=== PATIENT | female | born 1955 | race Hispanic/Latino ===

== ENCOUNTER 2016-08-30 14:52 | Emergency (ER) | payer OTHER ==
[2016-08-30 15:20] VITALS: BP 120/77
[2016-08-30] MEDS ORDERED: NORCO 5/325 PO ONE (19:36)
--- NOTE | 2016-08-30 19:39 | Emergency Department Report ---
ED Fall HPI - General Chief Complaint: Fall Stated Complaint: FALL Time Seen by Provider: 08/30/16 19:27 Source: patient Mode of arrival: Ambulatory - History of Present Illness Initial Comments: 61-year-old female past medical history Paget's disease, history of femur fracture, obesity, arthritis, diabetes presents with complaint of right foot pain and left knee pain status post mechanical fall at home. Patient states that she tripped over a tile on the floor and rolled her right foot. Fell forward. Denies any head trauma no neck trauma, no loss of consciousness. Patient denies any pain in her upper extremities and back or chest or abdomen. States that she primarily feels pain in her right foot and some in her left knee. Patient uses cane to ambulate. Patient is able to stand but has pain in her right foot when she stands. She denies being on any blood thinners. Patient is awake alert and oriented 3 does not appear to be in acute distress during my exam. Is fully lucid conversant and able to follow commands and answer my questions appropriately. MD Complaint: fall Onset/Timin -: days(s) Fall From: standing When Fall Occurred: recurrent falls Fall Witnessed: yes, by bystander Place Fall Occurred: home Loss of Consciousness: none Prolonged Down Time?: no Symptoms Prior to Fall: none Location - Extremities: Left: Knee, Right: Foot Severity: moderate Severity scale (0 -10): 6 Quality: sharp Context: tripped/slipped, history of frequent falls Associated Symptoms: denies - Related Data Previous Rx's Medication Instructions Recorded Last Taken Type HYDROcodone/APAP 5-325 [[place] 1 each PO Q6HR PRN #18 tablet 08/30/16 Unknown Rx 5/325] Allergies Allergy/AdvReac Type Severity Reaction Status Date / Time hydrocortisone AdvReac Rash Verified 08/30/16 15:22 [From Cortizone-10] Penicillins AdvReac Rash Verified 08/30/16 15:22 ED Review of Systems ROS: Stated complaint: FALL Other details as noted in HPI Constitutional: denies: chills, fever Eyes: denies: eye pain, eye discharge, vision change ENT: denies: ear pain, throat pain Respiratory: denies: cough, shortness of breath, wheezing Cardiovascular: denies: chest pain, palpitations Endocrine: no symptoms reported Gastrointestinal: denies: abdominal pain, nausea, diarrhea Genitourinary: denies: urgency, dysuria, discharge Musculoskeletal: denies: back pain, joint swelling, arthralgia Skin: denies: rash, lesions Neurological: denies: headache, weakness, paresthesias Psychiatric: denies: anxiety, depression Hematological/Lymphatic: denies: easy bleeding, easy bruising ED Past Medical Hx - Past Medical History Previous Medical History?: Yes Hx Diabetes: Yes Hx Arthritis: Yes Additional medical history: padgetts - Surgical History Additional Surgical History: fx femur - Social History Smoking Status: Never Smoker Substance Use Type: None - Medications Home Medications: Home Medications Medication Instructions Recorded Confirmed Last Taken Type HYDROcodone/APAP 5-325 [[place] 1 each PO Q6HR PRN #18 tablet 08/30/16 Unknown Rx 5/325] ED Physical Exam - General Limitations: No Limitations General appearance: alert, in no apparent distress - Head Head exam: Present: atraumatic, normocephalic - Eye Eye exam: Present: normal appearance, PERRL, EOMI - ENT ENT exam: Present: mucous membranes moist - Neck Neck exam: Present: normal inspection, full ROM - Respiratory Respiratory exam: Present: normal lung sounds bilaterally. Absent: respiratory distress - Cardiovascular Cardiovascular Exam: Present: regular rate, normal rhythm. Absent: systolic murmur, diastolic murmur, rubs, gallop - GI/Abdominal GI/Abdominal exam: Present: soft, normal bowel sounds - Extremities Exam Extremities exam: Present: normal inspection - Expanded Lower Extremity Exam Right Hip exam: Present: normal inspection, full ROM Upper Leg exam: Present: normal inspection, full ROM Knee exam: Present: normal inspection, full ROM Lower Leg exam: Present: normal inspection, full ROM Ankle exam: Present: normal inspection, full ROM Foot/Toe exam: Present: tenderness (tenderness at the lateral edge of right foot ), tenderness at base of 5th metatarsal Neuro vascular tendon exam: Present: no vascular compromise (distal dorsalis pedis pulse intact, strong palpation on the distal sensation intact) Gait: Positive: observed and limited by pain, unable to bear weight 1 - Pain and tenderness here slight ecchymosis. - Back Exam Back exam: Present: normal inspection - Neurological Exam Neurological exam: Present: alert, oriented X3 - Psychiatric Psychiatric exam: Present: normal affect, normal mood - Skin Skin exam: Present: warm, dry, intact, normal color. Absent: rash ED Course Vital Signs 08/30/16 15:18 Temperature 97.9 F Pulse Rate 102 H Respiratory 20 Rate Blood Pressure 120/77 O2 Sat by Pulse 98 Oximetry ED Medical Decision Making - Medical Decision Making A/P: Right foot fracture 1-x-rays show old fractures and hardware in hip femur and knee. Only new fracture and right foot at base of fifth metatarsal 2-hydrocodone when necessary for pain 3-posterior splint to right lower extremity with orthopedic shoe 4-patient states that she has an orthopedic physician, I will refer her to orthopedics and podiatry as well for follow-up 5- patient states she has crutches and canes at home to ambulate 6- I advised patient to be nonweightbearing for now as she has a foot fracture and to follow-up with a in house cra or orthopedic doctor as soon as possible. Patient states that she will call her private orthopedic doctor who performed her hip surgery tomorrow morning for follow-up as soon as possible. Critical care attestation.: If time is entered above; I have spent that time in minutes in the direct care of this critically ill patient, excluding procedure time. ED Disposition Clinical Impression: Foot fracture, right Qualifiers: Encounter type: initial encounter Fracture type: closed Qualified Code(s): S92.901A - Unspecified fracture of right foot, initial encounter for closed fracture Fall Qualifiers: Encounter type: sequela Qualified Code(s): W19.XXXS - Unspecified fall, sequela Disposition: DISCHARGED TO HOME OR SELFCARE Is pt being admited?: No Does the pt Need Aspirin: No Condition: Stable Instructions: Foot Fracture in Adults (ED), Splint Care (ED) Prescriptions: HYDROcodone/APAP 5-325 [[place] 5/325] 1 each PO Q6HR PRN #18 tablet PRN Reason: Pain Referrals: [facility] [Provider Group] - 3-5 Days TERESA WANG MD [Staff Physician] - 3-5 Days RADHA JOSE DPM [Staff Physician] - 3-5 Days Time of Disposition: 22:49
--- NOTE | 2016-08-30 21:53 | XRay Report ---
FINAL REPORT PROCEDURE: XR FOOT 3 RT TECHNIQUE: RIGHT foot radiographs, AP, lateral, and oblique views. CPT 19876 HISTORY: Right foot pain after trauma. Fall. COMPARISON: No prior studies are available for comparison. FINDINGS: Fracture (s) and/or Dislocation(s): There is an oblique linear lucency through the midshaft of the 5th metatarsal extending to the lateral cortex. This could be a nutrient canal. However in the setting of trauma this is probably an acute nondisplaced fracture. There is no plain film evidence of acute fracture otherwise. Ossific density lateral to the tarsal bones in the midfoot may be developmental variant or old fracture fragment or degenerative osteophyte.. Alignment: Normal . Joint space(s): Normal . Soft tissues: Normal . Bone mineralization: Mild degenerative change throughout.. Foreign bodies: None . Calcaneal spurring: Moderate spurring at Achilles tendon insertion. IMPRESSION: 1. Probable nondisplaced oblique fracture through midshaft of 5th metatarsal. 2. Mild degenerative change throughout the foot.
--- NOTE | 2016-08-30 22:00 | XRay Report ---
FINAL REPORT PROCEDURE: BILATERAL HIPS AND PELVIS TECHNIQUE: This exam consists of 2 films. These are in AP pelvis which includes both hips and an AP pelvis with both hips and a frog-leg lateral position HISTORY: Pain after trauma. Fall. COMPARISON: No prior studies are available for comparison. FINDINGS: Fracture (s) and/or Dislocation(s): None . Joint space(s): Normal. Soft tissues: Normal. Bone mineralization: Mild degenerative change throughout. Foreign bodies: A metallic plate is partially seen involving lateral proximal left femoral shaft IMPRESSION: 1. There is no plain film evidence of fracture dislocation in the pelvis or bilateral hips based on these 2 films. 2. Metallic plate partially seen involving upper left femoral shaft. 3. Left femur and left knee series performed at same time as this exam are each dictated separately
--- NOTE | 2016-08-30 22:08 | XRay Report ---
FINAL REPORT PROCEDURE: XR FEMUR TWO VIEWS LEFT AP AND LATERAL TECHNIQUE: A total of 4 films obtained. These are 2 AP views and 2 lateral views of the left femur. HISTORY: Left femur pain after trauma. Fall. COMPARISON: No prior studies are available for comparison. FINDINGS: Fracture (s) and/or Dislocation(s): There is no plain film evidence of acute fracture. There is a oblique ununited fracture across the distal left femoral shaft. Two screws are seen bridging this. The margins of this ununited fracture are sclerotic. Therefore this is likely an old ununited fracture.. Joint space(s): Normal . Soft tissues: Normal . Bone mineralization: Normal . Foreign bodies: Large metallic plate is seen across most of the lateral left femoral shaft. Multiple metallic screws are seen in the distal femur.. IMPRESSION: 1. There is no convincing plain film evidence of acute fracture or dislocation in the left femur. 2. There is a probable ununited old oblique fracture through distal femoral shaft with the fracture line still visible. This has a chronic appearance. 3. Metallic hardware as above. 4. Pelvis and hip series and left knee series each performed at same time as this exam are each dictated separately.
--- NOTE | 2016-08-30 22:16 | XRay Report ---
FINAL REPORT PROCEDURE: XR KNEE 4 LT TECHNIQUE: LEFT knee radiographs, 4 or more views, including AP, lateral, and oblique views. CPT 35729 Total of 6 films were obtained for this exam. These are 3 AP views, 2 oblique views, and 1 lateral view of the left knee HISTORY: Knee pain after trauma. Left knee pain s/p fall hx of fractures COMPARISON: No prior studies are available for comparison. FINDINGS: There is no plain film evidence of acute fracture. There is an oblique fracture through the distal left femoral shaft with sclerotic margins. This is most likely an old ununited fracture. It has a chronic appearance. Two metallic screws are seen bridging this. In addition multiple other screws are seen in the distal femur attached to a metallic sideplate. Mild degenerative change noted. IMPRESSION: 1. There is no plain film evidence of acute fracture or dislocation in the left knee. 2. Probable old ununited chronic appearing oblique fracture through distal femoral shaft. 3. Metallic hardware as above. 4. Mild degenerative change. 5. Femur and hip series each performed at same time as this exam are each dictated separately.
== END 2016-08-30 23:29 | disposition home or self-care (01) ==
LOC: ED 14:52
DX: S92.351A Displaced fracture of fifth metatarsal bone, right foot, initial encounter for closed fracture (principal); E11.9 Type 2 diabetes mellitus without complications; W18.30XA Fall on same level, unspecified, initial encounter; Y93.9 Activity, unspecified; Y92.9 Unspecified place or not applicable; Y99.9 Unspecified external cause status
CPT/HCPCS: 73521; 99283

== ENCOUNTER 2017-03-23 17:59 | Emergency (ER) | payer SELFPAY ==
[2017-03-23] MEDS ORDERED: NORCO 5/325 PO ONE (20:55)
--- NOTE | 2017-03-23 20:55 | Emergency Department Report ---
Upper Extremity - HPI Chief Complaint: Fall Stated Complaint: LEFT HAND,KNEE PAIN Time Seen by Provider: 03/23/17 20:19 Upper Extremity: Left Hand Occurred When: Today Mechanism: Fall Severity: moderate Symptoms: Yes Pain with Movement, Yes Swelling, Yes Bruising/Ecchymosis, No Deformity, No Limited Range of Movement, No Numbness, No Laceration or Abrasion Other History: 61-year-old female past medical history diabetes arthritis Paget' s disease, difficulty ambulating uses crutches at baseline history of left femur fracture presents with complaint of left hand pain and left knee pain status post mechanical fall today. Tripped over a basket of laundry and fell onto outstretched hand. States she has significant pain and swelling of her left hand and achiness near her left knee. Is able to ambulate but states that her left hand is hurting significantly. Is awake alert and oriented 3 not in acute distress denies loss of consciousness or direct head trauma. This fully lucid during exam and has visible hand swelling and ecchymosis at the left MCP joint areas between second and third MCP joints ED Review of Systems ROS: Stated complaint: LEFT HAND,KNEE PAIN Other details as noted in HPI Constitutional: denies: chills, fever Eyes: denies: eye pain, eye discharge, vision change ENT: denies: ear pain, throat pain Respiratory: denies: cough, shortness of breath, wheezing Cardiovascular: denies: chest pain, palpitations Endocrine: no symptoms reported Gastrointestinal: denies: abdominal pain, nausea, diarrhea Genitourinary: denies: urgency, dysuria, discharge Musculoskeletal: as per HPI. denies: back pain, joint swelling, arthralgia Skin: denies: rash, lesions Neurological: denies: headache, weakness, paresthesias Psychiatric: denies: anxiety, depression Hematological/Lymphatic: denies: easy bleeding, easy bruising ED Past Medical Hx - Past Medical History Previous Medical History?: Yes Hx Diabetes: Yes Hx Arthritis: Yes Additional medical history: Lloyd - Surgical History Past Surgical History?: Yes Additional Surgical History: fx femur - Social History Smoking Status: Never Smoker Substance Use Type: Prescribed - Medications Home Medications: Home Medications Medication Instructions Recorded Confirmed Last Taken Type HYDROcodone/APAP 5-325 [[place] 1 each PO Q6HR PRN #18 tablet 08/30/16 Unknown Rx 5/325] HYDROcodone/APAP 5-325 [[place] 1 each PO Q6HR PRN #12 tablet 03/23/17 Unknown Rx 5/325] Ibuprofen [Motrin] 600 mg PO Q8H PRN #30 tablet 03/23/17 Unknown Rx Upper Extremity Exam - Exam General: Vital signs noted. No distress. Alert and acting appropriately. Head and Torso: No HEENT Abnormality, No Neck Tenderness, No Chest/Lungs Abnormality, No Abdominal Tenderness, No Back Tenderness Shoulder Exam: Yes Normal Range of Motion in Shoulder, No Shoulder Tenderness, No Clavicle Tenderness, No Shoulder Deformity, No AC Joint Tenderness Arm Exam: No Arm/Humerus Tenderness, No Arm Deformity Elbow: No Elbow Tenderness, No Normal Range of Motion in Elbow, No Elbow Deformity Forearm: No Forearm Tenderness, No Forearm Deformity, No Pain with Pronation, No Pain with Supination Wrist: Yes Normal ROM in Wrist, No Wrist Tenderness, No Wrist Deformity, No Snuffbox Tenderness, No Pain with Axial Thumb Compression Hand: Yes Hand Tenderness (patient has tenderness overlying second and third MCP joint areas left hand with visible ecchymosis), Yes Normal ROM in Digit(s), No Hand Deformity, No Digit Tenderness, No Digit(s) Deformity, No Tendon Dysfunction CMS Exam: Yes Normal Distal Pulses (distal radial and ulnar pulses intact distal capillary refill intact), Yes Normal Capillary Refill (capillary refill less than 1 second fingers), No Broken Skin, No Normal Distal Sensation Front/Back of Body, Lg (Color): 1 - Pain and swelling on examination here with visible ecchymosis ED Course Vital Signs 03/23/17 18:28 Temperature 98.4 F Pulse Rate 98 H Respiratory 20 Rate Blood Pressure 143/86 O2 Sat by Pulse 94 Oximetry ED Medical Decision Making - Medical Decision Making A/P: Left distal MCP fracture left hand second MCP joint, mechanical fall 1-hand splint, short sugar tong to immobilize MCP joint left hand 2-follow-up with orthopedics 3-as patient had mechanical fall with distracting injury I ordered head and C- spine CT. No acute fractures no acute findings on CT is 4-x-ray left knee unremarkable. Shows old hardware 5- [place] when necessary, Motrin when necessary, I advised patient to follow up with orthopedics as soon as possible mitigate any long-term dysfunction. Patient being driven home by her . Critical care attestation.: If time is entered above; I have spent that time in minutes in the direct care of this critically ill patient, excluding procedure time. ED Disposition Clinical Impression: Left hand fracture Qualifiers: Encounter type: initial encounter Fracture type: closed Qualified Code(s): S62.92XA - Unspecified fracture of left wrist and hand, initial encounter for closed fracture Fall Qualifiers: Encounter type: initial encounter Qualified Code(s): W19.XXXA - Unspecified fall, initial encounter Disposition: TO HOME OR SELFCARE Is pt being admited?: No Does the pt Need Aspirin: No Condition: Stable Instructions: Hand Fracture (ED), Splint Care (ED) Prescriptions: HYDROcodone/APAP 5-325 [[place] 5/325] 1 each PO Q6HR PRN #12 tablet PRN Reason: Pain Ibuprofen [Motrin] 600 mg PO Q8H PRN #30 tablet PRN Reason: Pain Referrals: GIOVANI YAÑEZ MD [Staff Physician] - 3-5 Days [facility] [Provider Group] - 3-5 Days Forms: Accompanied Note, Work/School Release Form(ED) Time of Disposition: 22:32
--- NOTE | 2017-03-23 21:55 | Cat Scan Report ---
FINAL REPORT EXAM: CT HEAD/BRAIN WO CON HISTORY: s/p fall, broke hand TECHNIQUE: Noncontrast serial axial images from skull base to vertex PRIORS: None. FINDINGS: There is no mass effect or midline shift. There are no abnormal intra or extra-axial fluid collections. Cortical sulci and lateral ventricles are within normal limits for size and configuration. Basilar cisterns are patent. No acute intracranial hemorrhage is identified. Visualized paranasal sinuses and mastoid air cells are well aerated. No acute osseous abnormality is identified. IMPRESSION: 1. No acute intracranial hemorrhage is identified.
--- NOTE | 2017-03-23 22:05 | Cat Scan Report ---
FINAL REPORT EXAM: CT CERVICAL SPINE WO CON HISTORY: s/p fall , broke hand TECHNIQUE: Noncontrast serial axial images through the cervical spine with coronal and sagittal reconstruction. PRIORS: None. FINDINGS: No gross abnormality is seen in the visualized portion of the brain. Mastoid air cells are well aerated. Prevertebral soft tissues appear within normal limits. There is an 11 millimeter hypodense focus in the anterior aspect of the thyroid gland. Coarse calcification is noted. Visualized portion of the lung apices are clear. No acute fracture or anterolisthesis is identified. Degenerative changes are noted at multiple levels. IMPRESSION: 1. No acute fracture or anterolisthesis is identified. 2. Multilevel degenerative change is noted. 3. Hypodense focus is noted thyroid gland. This is incompletely evaluated in this study. This can be further characterized sonographically. Biopsy can be performed if indicated.
--- NOTE | 2017-03-24 00:23 | XRay Report ---
FINAL REPORT EXAM: XR KNEE 1-2V LT HISTORY: fall with left knee injury TECHNIQUE: Left knee two views 3 images PRIORS: Left knee radiograph 08/30/2016 FINDINGS: Osteopenia is noted. Sequelae from open reduction internal fixation of femur fracture are seen. Fracture line is still visible but less so than in the prior exam. No new fracture is identified. Degenerative changes are noted in the knee. IMPRESSION: 1. Sequelae from prior trauma and surgical intervention are re-identified. Fracture line is still visible but less so than in the prior exam. No new fracture is identified.
--- NOTE | 2017-03-24 00:25 | XRay Report ---
FINAL REPORT EXAM: XR HAND 3+V LT HISTORY: fall with left hand injury TECHNIQUE: Left hand three views 3 images PRIORS: None. FINDINGS: Bone mineralization appears within normal limits. There is an oblique fracture of the distal 2nd metacarpal with 3 millimeters medial displacement. There is soft tissue swelling in the hand. IMPRESSION: 1. Traumatic fracture of the distal 2nd metacarpal.
[2017-03-24 00:44] VITALS: BP 136/80
== END 2017-03-24 00:40 | disposition home or self-care (01) ==
LOC: ED 17:59
DX: S62.391A Other fracture of second metacarpal bone, left hand, initial encounter for closed fracture (principal); M25.562 Pain in left knee; E11.9 Type 2 diabetes mellitus without complications; M19.90 Unspecified osteoarthritis, unspecified site; W01.10XA Fall on same level from slipping, tripping and stumbling with subsequent striking against unspecified object, initial encounter; Y93.89 Activity, other specified; Y92.89 Other specified places as the place of occurrence of the external cause; Y99.8 Other external cause status
CPT/HCPCS: 70450; 72125; 99284

== ENCOUNTER 2018-08-25 08:06 | Outpatient (CLI) | payer OTHER ==
[2018-08-25] MEDS ORDERED: DOBUTAMINE Stress 100 MG in D5W 75 ML IV SCH (09:00)
--- NOTE | 2018-08-31 02:07 | Treadmill Report ---
DOBUTAMINE STRESS TESTING INDICATION: Chest pain and morbid obesity, unable to ambulate. This 63-year-old patient had pre-dobutamine echocardiogram, which revealed normal left ventricular systolic function with ejection fraction of 50%-55%. We did obtain parasternal long axis, short axis, and apical 4-chamber view. She was started on dobutamine as per protocol. We did go through every 3 minutes increasing dobutamine from 5 mcg/kg/min went up to 30 mcg/kg/minute. She was given 5 mcg then 10 mcg followed by 20 mcg and highest dose was 30 mcg. The patient's blood pressure and pulse was recorded continuously. Resting pulse was 80 and the blood pressure was 130/77. The patient reached rate of 140, which is more than 85% target heart rate with blood pressure of 160/65. The test was terminated because of reaching target heart rate and the patient complained of palpitations. No chest pain or ischemic changes noted. The patient was given Definity for better delineation of endocardium for ejection fraction. Post-dobutamine echocardiogram revealed a normal ventricular size with good systolic function; probably EF went up by 5%-10%, 60%-65%. There is no evidence of segmental wall motion abnormality. The patient gradually improved and she was observed in the test area. The blood pressure was 134/70 and her heart rate was 100 beats per minute before she left the lab. IMPRESSION: 1. This test is negative for ischemia. 2. Echocardiogram was normal, pre and post-dobutamine. 3. EKG did not reveal any ischemic changes at target heart rate. This test is negative for ischemia. JOB# [id number] MATTHIAS/COMFORT
== END 2018-08-25 08:07 | disposition home or self-care (01) ==
LOC: CARD 08:06
DX: R07.9 Chest pain, unspecified (principal); E66.01 Morbid (severe) obesity due to excess calories; R00.2 Palpitations; R06.02 Shortness of breath
CPT/HCPCS: 93017; 93320; 93325; 93350; 96374; J1250